=== PATIENT | male | born 1965 | race Caucasian/White ===

== ENCOUNTER 2023-11-27 10:18 | Inpatient (IN) | payer OTHER ==
[~2023-11-27] VITALS: Ht 185.4 cm; Wt 86.2 kg
[2023-11-27 00:45] VITALS: BP 144/85; TEMP 98.6; O2SAT 95
[2023-11-27] MEDS ORDERED: CHLORDIAZEPOXIDE HCL 25 MG CAPSULE ONE ×3 (10:50→22:22)
[2023-11-27] MEDS ORDERED: CYANOCOBALAMIN 1,000 MCG TABLET ONE (10:50)
[2023-11-27] MEDS ORDERED: THIAMINE HCL 100 MG TABLET ONE (10:52)
[2023-11-27] MEDS: THIAMINE HCL 100 MG TABLET PO ONE (10:53)
[2023-11-27] MEDS: CHLORDIAZEPOXIDE HCL 25 MG CAPSULE PO ONE ×3 (10:53→22:19)
[2023-11-27 11:02] LABS: BASOPHILS % (AUTO) 0.1 % (0.0-2.0); EOSINOPHILS # (AUTO) 0.5 K/uL (0.0-0.7); EOSINOPHILS % (AUTO) 6.2 % (0.0-7.0); HEMATOCRIT 39.6 % (36.7-47.1); HEMOGLOBIN 13.4 g/dL (12.5-16.3); LYMPHOCYTES # (AUTO) 2.3 K/uL (0.8-4.8); MEAN CORPUSCULAR HEMOGLOBIN 33.2 uug (23.8-33.4); MEAN CORPUSCULAR HGB CONC 34 g/dL (32.5-36.3); MEAN CORPUSCULAR VOLUME 98.1 fL (73.0-96.2); MONOCYTES # (AUTO) 0.6 K/uL (0.1-1.30); MONOCYTES % (AUTO) 6.9 % (0.0-11.0); NEUTROPHILS % (AUTO) 59.8 % (38.5-71.5); PLATELET COUNT (AUTO) 330 K/uL (152-348); RED BLOOD CELL COUNT(AUTO) 4.04 MIL/uL (4.06-5.63); RED CELL DISTRIBUTION WIDTH 17.2 % (12.1-16.2); WHITE BLOOD COUNT (AUTO) 8.4 K/uL (3.6-10.2)
[2023-11-27 11:16] LABS: DIFFERENTIAL COMMENT 1
[2023-11-27 11:19] LABS: CARBON DIOXIDE 27 mmol/L (21-32); CHLORIDE 103 mmol/L (98-107); CREATININE 1.2 mg/dL (0.6-1.3); GLUCOSE 108 mg/dL (74-106); SODIUM SERUM 134 mmol/L (136-145); UREA NITROGEN, BLOOD 21 mg/dL (7-18)
[2023-11-27 11:25] LABS: ALANINE AMINOTRANSFERASE 16 U/L (16-63); ALKALINE PHOSPHATASE 68 U/L (50-136); ASPARTATE AMINOTRANSFERASE 15 U/L (15-37); BILIRUBIN,DIRECT 0.2 mg/dL (0.0-0.2); BILIRUBIN,TOTAL 0.5 mg/dL (0.2-1.0); TOTAL PROTEIN, SERUM 7.8 g/dL (6.4-8.2)
[2023-11-27 12:31] LABS: AMMONIA 19 umol/L (11-32)
[2023-11-27 12:38] LABS: ACETAMINOPHEN < 2.0 ug/mL (10-30)
[2023-11-27 12:41] LABS: ALBUMIN 3.8 g/dL (3.4-5.0)
[2023-11-27 12:43] LABS: ETHANOL < 3 MG/DL (0-10)
[2023-11-27 13:29] LABS: MAGNESIUM 1.7 mg/dL (1.8-2.4)
[2023-11-27] MEDS ORDERED: CYANOCOBALAMIN 1000 MCG/ML VIAL ONE (19:09)
[2023-11-27] MEDS: CYANOCOBALAMIN 1000 MCG/ML VIAL IM ONE (19:14)
[2023-11-27] MEDS ORDERED: LIDOCAINE 2% (GLYDO= UROJET) 10 ML JELLY MM ONE (20:26)
[2023-11-27] MEDS ORDERED: IV NORMAL SALINE 1000 ML BAG IV ONE (20:30)
[2023-11-27 21:00] LABS: *BILIRUBIN,URIN NEGATIVE (NEGATIVE); *BLOOD, URINE NEGATIVE (NEGATIVE); *CLARITY,URINE CLEAR (CLEAR); *COLOR,URINE YELLOW (YELLOW); *KETONES,URINE NEGATIVE (NEGATIVE); *PROTEIN,URINE NEGATIVE (NEGATIVE); *UROBILINOGEN,URINE 0.2 E.U./dl (NORMAL); LEUKOCYTE ESTERASE ,URINE NEGATIVE (NEGATIVE); NITRITE, URINE NEGATIVE (NEGATIVE); PH,URINE 6.5 (5.0-8.0); UGLUCOSE NEGATIVE (NEGATIVE)
[2023-11-27] MEDS: LIDOCAINE 2% (GLYDO= UROJET) 10 ML JELLY MM ONE (21:08)
[2023-11-27 21:14] LABS: *AMPHETAMINE, URINE NEGATIVE (NEGATIVE); *BARBITURATE, URINE NEGATIVE (NEGATIVE); *BENZODIAZEPINE, URINE POSITIVE (NEGATIVE); *CANNABINOID, URINE NEGATIVE (NEGATIVE); *COCCAINE, URINE NEGATIVE (NEGATIVE); *OPIATE, URINE NEGATIVE (NEGATIVE); *PHENCYCLIDINE SCREEN,URINE NEGATIVE (NEGATIVE); FENTANYL, URINE NEGATIVE (NEGATIVE)
[2023-11-28] VITALS (7 sets, daily range): BP systolic 107–144; BP diastolic 71–91; TEMP 98–98.6; O2SAT 95–96
[2023-11-28] MEDS ORDERED: LORAZEPAM 2 MG/1 ML VIAL IV PRN (00:15)
[2023-11-28] MEDS ORDERED: MORPHINE SULFATE 2 MG/1 ML DISP.SYRIN IV PRN (00:15)
[2023-11-28] MEDS ORDERED: ONDANSETRON 4 MG/2 ML VIAL IV ONE (00:15)
[2023-11-28] MEDS ORDERED: ACETAMINOPHEN 325 MG TABLET PO PRN (00:15)
[2023-11-28] MEDS ORDERED: ONDANSETRON 4 MG/2 ML VIAL IV PRN (02:15)
[2023-11-28 07:20] LABS: BASOPHILS # (AUTO) 0.1 K/UL (0.0-0.2); BASOPHILS % (AUTO) 1.1 % (0.0-2.0); DIFFERENTIAL COMMENT 0; EOSINOPHILS # (AUTO) 0.2 K/uL (0.0-0.7); EOSINOPHILS % (AUTO) 2.2 % (0.0-7.0); HEMATOCRIT 38.2 % (36.7-47.1); LYMPHOCYTES # (AUTO) 1.8 K/uL (0.8-4.8); LYMPHOCYTES % (AUTO) 26.1 % (20.5-51.5); MEAN CORPUSCULAR HEMOGLOBIN 33.2 uug (23.8-33.4); MEAN CORPUSCULAR HGB CONC 34 g/dL (32.5-36.3); MEAN CORPUSCULAR VOLUME 97.9 fL (73.0-96.2); MONOCYTES # (AUTO) 0.9 K/uL (0.1-1.30); MONOCYTES % (AUTO) 13.4 % (0.0-11.0); NEUTROPHILS % (AUTO) 57.2 % (38.5-71.5); PLATELET COUNT (AUTO) 271 K/uL (152-348); RED CELL DISTRIBUTION WIDTH 16.7 % (12.1-16.2)
[2023-11-28 08:08] LABS: ALANINE AMINOTRANSFERASE 15 U/L (16-63); ALBUMIN 3.2 g/dL (3.4-5.0); ALKALINE PHOSPHATASE 64 U/L (50-136); ASPARTATE AMINOTRANSFERASE 17 U/L (15-37); BILIRUBIN,TOTAL 0.5 mg/dL (0.2-1.0); CARBON DIOXIDE 27 mmol/L (21-32); CHLORIDE 102 mmol/L (98-107); CHOLESTEROL 213 mg/dL (<200); CREATININE 1.1 mg/dL (0.6-1.3); GLUCOSE 109 mg/dL (74-106); HDL CHOLESTEROL 48 mg/dL (40-60); MAGNESIUM 1.8 mg/dL (1.8-2.4); SODIUM SERUM 139 mmol/L (136-145); TOTAL PROTEIN, SERUM 6.6 g/dL (6.4-8.2); TRIGLYCERIDES 191 MG/DL (30-150); UREA NITROGEN, BLOOD 20 mg/dL (7-18)
[2023-11-28 08:25] LABS: IRON, SERUM 83 ug/dL (50-175)
[2023-11-28] MEDS: FOLIC ACID 1 MG TABLET PO SCH (08:46)
[2023-11-28] MEDS: PANTOPRAZOLE SODIUM 40 MG TABLET.DR PO SCH (08:46)
[2023-11-28] MEDS: THIAMINE HCL 100 MG TABLET PO SCH (08:46)
[2023-11-28] MEDS: MULTIVIT, IRON, MIN NO. 8, FA TABLET PO SCH (08:46)
[2023-11-29] VITALS (7 sets, daily range): BP systolic 105–137; BP diastolic 60–82; TEMP 97.9–98.5; O2SAT 92–97
[2023-11-30 06:00] VITALS: BP 144/82; TEMP 97.4; O2SAT 97
[2023-11-30 07:13] LABS: BASOPHILS # (AUTO) 0.1 K/UL (0.0-0.2); EOSINOPHILS # (AUTO) 0.2 K/uL (0.0-0.7); EOSINOPHILS % (AUTO) 2.1 % (0.0-7.0); HEMATOCRIT 38.5 % (36.7-47.1); HEMOGLOBIN 13.1 g/dL (12.5-16.3); LYMPHOCYTES # (AUTO) 1.9 K/uL (0.8-4.8); LYMPHOCYTES % (AUTO) 21.4 % (20.5-51.5); MEAN CORPUSCULAR HGB CONC 34 g/dL (32.5-36.3); MONOCYTES # (AUTO) 0.9 K/uL (0.1-1.30); MONOCYTES % (AUTO) 10.6 % (0.0-11.0); NEUTROPHILS # (AUTO) 5.6 K/uL (1.8-8.9); NEUTROPHILS % (AUTO) 64.9 % (38.5-71.5); PLATELET COUNT (AUTO) 296 K/uL (152-348); RED BLOOD CELL COUNT(AUTO) 3.97 MIL/uL (4.06-5.63); WHITE BLOOD COUNT (AUTO) 8.7 K/uL (3.6-10.2)
[2023-11-30 07:28] LABS: CALCIUM 8.8 mg/dL (8.5-10.1); CREATININE 1.2 mg/dL (0.6-1.3); MAGNESIUM 1.8 mg/dL (1.8-2.4); PHOSPHOROUS 4.8 mg/dL (2.5-4.9); POTASSIUM 4.2 mmol/L (3.5-5.1)
[2023-11-30 07:43] LABS: DIFFERENTIAL COMMENT 1
[2023-11-30 08:16] VITALS: BP 141/77; TEMP 98; O2SAT 96
[2023-11-30 11:26] VITALS: BP 114/64; TEMP 98.2; O2SAT 97
[2023-11-30 15:30] VITALS: BP 122/73; TEMP 97.5; O2SAT 96
[2023-11-30 20:00] VITALS: BP 138/88; TEMP 98.1; O2SAT 97
[2023-11-30] MEDS: LORAZEPAM 1 MG TABLET PO PRN (23:18)
[2023-12-01 06:00] VITALS: BP 124/72; TEMP 98; O2SAT 89
[2023-12-01 08:02] LABS: BASOPHILS # (AUTO) 0.1 K/UL (0.0-0.2); BASOPHILS % (AUTO) 0.7 % (0.0-2.0); EOSINOPHILS # (AUTO) 0.3 K/uL (0.0-0.7); EOSINOPHILS % (AUTO) 2.2 % (0.0-7.0); HEMATOCRIT 38.5 % (36.7-47.1); HEMOGLOBIN 13.2 g/dL (12.5-16.3); LYMPHOCYTES # (AUTO) 1.8 K/uL (0.8-4.8); LYMPHOCYTES % (AUTO) 14.5 % (20.5-51.5); MEAN CORPUSCULAR HEMOGLOBIN 33.4 uug (23.8-33.4); MEAN CORPUSCULAR HGB CONC 34 g/dL (32.5-36.3); MEAN CORPUSCULAR VOLUME 97.2 fL (73.0-96.2); MONOCYTES # (AUTO) 1.1 K/uL (0.1-1.30); MONOCYTES % (AUTO) 8.8 % (0.0-11.0); NEUTROPHILS # (AUTO) 9.1 K/uL (1.8-8.9); NEUTROPHILS % (AUTO) 73.8 % (38.5-71.5); PLATELET COUNT (AUTO) 291 K/uL (152-348); RED BLOOD CELL COUNT(AUTO) 3.95 MIL/uL (4.06-5.63); RED CELL DISTRIBUTION WIDTH 17.3 % (12.1-16.2); WHITE BLOOD COUNT (AUTO) 12.3 K/uL (3.6-10.2)
[2023-12-01 08:03] LABS: DIFFERENTIAL COMMENT 1
[2023-12-01 08:08] LABS: CALCIUM 8.9 mg/dL (8.5-10.1); CREATININE 1.2 mg/dL (0.6-1.3); MAGNESIUM 1.8 mg/dL (1.8-2.4); POTASSIUM 4.2 mmol/L (3.5-5.1)
[2023-12-01] MEDS ORDERED: MULT-594 PO (11:58)
[2023-12-01] MEDS ORDERED: THIA100T13 PO (11:58)
[2023-12-01] MEDS ORDERED: FOLI1TAB94 PO (11:58)
[2023-12-01 12:03] VITALS: BP 113/73; TEMP 97.8; O2SAT 95
[2023-12-01 15:38] VITALS: BP 132/80; TEMP 98.4; O2SAT 96
[2023-12-01 20:00] VITALS: BP 144/87; TEMP 98; O2SAT 96
[2023-12-02 07:13] LABS: BASOPHILS # (AUTO) 0.1 K/UL (0.0-0.2); BASOPHILS % (AUTO) 0.9 % (0.0-2.0); EOSINOPHILS # (AUTO) 0.3 K/uL (0.0-0.7); EOSINOPHILS % (AUTO) 2.2 % (0.0-7.0); HEMATOCRIT 38.4 % (36.7-47.1); HEMOGLOBIN 12.9 g/dL (12.5-16.3); LYMPHOCYTES # (AUTO) 1.9 K/uL (0.8-4.8); LYMPHOCYTES % (AUTO) 15.8 % (20.5-51.5); MEAN CORPUSCULAR HEMOGLOBIN 32.6 uug (23.8-33.4); MEAN CORPUSCULAR HGB CONC 34 g/dL (32.5-36.3); MEAN CORPUSCULAR VOLUME 97.4 fL (73.0-96.2); MONOCYTES # (AUTO) 1.3 K/uL (0.1-1.30); MONOCYTES % (AUTO) 10.7 % (0.0-11.0); NEUTROPHILS # (AUTO) 8.3 K/uL (1.8-8.9); NEUTROPHILS % (AUTO) 70.4 % (38.5-71.5); PLATELET COUNT (AUTO) 298 K/uL (152-348); RED BLOOD CELL COUNT(AUTO) 3.94 MIL/uL (4.06-5.63); RED CELL DISTRIBUTION WIDTH 17.1 % (12.1-16.2); WHITE BLOOD COUNT (AUTO) 11.8 K/uL (3.6-10.2)
[2023-12-02 07:23] LABS: DIFFERENTIAL COMMENT 1
[2023-12-02 07:31] LABS: CALCIUM 9.2 mg/dL (8.5-10.1); CREATININE 1.2 mg/dL (0.6-1.3); MAGNESIUM 1.8 mg/dL (1.8-2.4); PHOSPHOROUS 4.8 mg/dL (2.5-4.9); POTASSIUM 3.9 mmol/L (3.5-5.1)
[2023-12-02] MEDS: CARBIDOPA/LEVODOPA 25-100MG TABLET PO SCH (08:56)
[2023-12-02 11:27] VITALS: BP 127/67; TEMP 98; O2SAT 96
[2023-12-02] MEDS ORDERED: CARB1TAB21 PO (11:37)
[2023-12-02 16:33] VITALS: BP 117/86; TEMP 98.4; O2SAT 96
[2023-12-02 20:00] VITALS: BP 130/81; TEMP 97.9; O2SAT 96
[2023-12-03 04:00] VITALS: BP 151/95; TEMP 98.2; O2SAT 98
[2023-12-03 11:21] VITALS: BP 106/67; TEMP 98.6; O2SAT 96
[2023-12-03 16:26] VITALS: BP 118/79; TEMP 98.2; O2SAT 97
[2023-12-03 20:00] VITALS: BP 132/78; TEMP 98.5; O2SAT 98
[2023-12-04 06:00] VITALS: BP 130/80; TEMP 98.2; O2SAT 97
== END 2023-12-04 07:40 | disposition home or self-care (01) | DRG 342 ==
LOC: ER 10:18 → TELE3 23:36 → MEDSURG3 11-29 11:49
PROVIDERS: ADMIT Internal Medicine; ATTEND Student in an Organized Health Care Education/Training Program
PROC: 2W3FX1Z Immobilization of Left Hand using Splint (ICD-10-PCS; principal; 2023-11-27)
DX: S62.611A Displaced fracture of proximal phalanx of left index finger, initial encounter for closed fracture (principal); R45.851 Suicidal ideations; E87.1 Hypo-osmolality and hyponatremia; G20.A1 Parkinson's disease without dyskinesia, without mention of fluctuations; E86.0 Dehydration; S62.613A Displaced fracture of proximal phalanx of left middle finger, initial encounter for closed fracture; S62.615A Displaced fracture of proximal phalanx of left ring finger, initial encounter for closed fracture; S62.617A Displaced fracture of proximal phalanx of left little finger, initial encounter for closed fracture; X58.XXXA Exposure to other specified factors, initial encounter; Y92.89 Other specified places as the place of occurrence of the external cause; Z59.01 Sheltered homelessness; E83.42 Hypomagnesemia; F10.139 Alcohol abuse with withdrawal, unspecified; Z75.1 Person awaiting admission to adequate facility elsewhere; E53.8 Deficiency of other specified B group vitamins; R94.31 Abnormal electrocardiogram [ECG] [EKG]; F32.A Depression, unspecified
CPT/HCPCS: 36415; 70450; 71045; 72050; 73130; 83550; 83690; 83735; 84100; 84484; 85025; 85730; 93005; C1758; G0378; G0480; J3420